=== PATIENT | female | born 1960 | race Caucasian/White ===

== ENCOUNTER → 2017-01-25 | Outpatient (CLI) | payer MEDICAID ==
[~2017-01-25] MED LIST: CLARITIN 10MG T10 MG PO; FERROUS SULFAT200 M1 PO; NORCO 325 MG-51 TAB PO; THEOPHYLLINE300 M2 PO; ZAFIRLUKAST20 M1 PO
[2017-01-25 11:44] LABS: HEMOGLOBIN 12.1 g/dL (12.2-16.2); LYMPH # 1.8 K/mm3 (0.7-4.5); LYMPH % 18.4 % (10-50.0)
[2017-01-25 14:43] LABS: BUN 12 mg/dL (7-18)
[2017-01-25 14:44] LABS: GFR (ESTIMATED) 87 ML/MIN (59-)
[2017-01-26 07:37] LABS: Iron 41 ug/dL (27-159); Iron Saturation 13 % (15-55); UIBC 285 ug/dL (131-425)
== END ==
LOC: LAB 10:58
PROVIDERS: Nurse Practitioner Family
DX: N93.9 Abnormal uterine and vaginal bleeding, unspecified (principal); Z79.899 Other long term (current) drug therapy

== ENCOUNTER → 2017-08-05 | Outpatient (CLI) | payer MEDICAID ==
[2017-08-05 11:42] LABS: HEMOGLOBIN 11.8 g/dL (12.2-16.2); LYMPH # 2.1 K/mm3 (0.7-4.5); LYMPH % 18.8 % (10-50.0)
[2017-08-05 13:06] LABS: BUN 22 mg/dL (7-18)
[2017-08-05 13:07] LABS: GFR (ESTIMATED) 74 ML/MIN (59-)
== END ==
LOC: LAB 11:03
PROVIDERS: Nurse Practitioner Family
DX: J45.909 Unspecified asthma, uncomplicated (principal); R03.0 Elevated blood-pressure reading, without diagnosis of hypertension; Z79.899 Other long term (current) drug therapy